=== PATIENT | female | born 1990 | race Caucasian/White ===

== ENCOUNTER 2016-06-20 09:44 | Inpatient (IN) | payer OTHER ==
[2016-06-20] VITALS (22 sets, daily range): BP systolic 75–123; BP diastolic 50–76
[~2016-06-20] VITALS: Ht 170.2 cm; Wt 67.0 kg
[~2016-06-20 09:44] MED LIST: COLA100C PO; IBUP80TA PO; IRON325T PO; PERCOCET PO; PRENTAB40 PO
[2016-06-20] MEDS ORDERED: LACTATED RINGER'S 1000 ML IV STA (10:08)
[2016-06-20] MEDS ORDERED: LR 1,000 ML IV SCH (10:08)
[2016-06-20 10:21] LABS: MEAN CORPUSCULAR HEMOGLOBIN 27.8 pg (27.0-33.0); MEAN CORPUSCULAR HGB CONC 32.7 g/dl (32.0-36.5); RED CELL DISTRIBUTION WIDTH 14.3 % (11.5-14.5); WHITE BLOOD COUNT 9.7 K/mm3 (4.0-10.0)
--- NOTE | 2016-06-20 10:24 | HPEPDOC ---
Obstetrical History & Physical General Date of Admission Jun 20, 2016 at 10:04 History of Present Illness Tracy is a 24yo with SIUP at 40w5d with history of prior section for breech presentation desiring TOLAC presenting with regular ctx since 0100. She states her contractions have become more painful over time. No LOF, no vaginal bleeding. Feels movement. Chief Complaint: Contractions, term Information Provided By: Patient Care Care: Good Care Dating Final EDC: Jun 15, 2016 Final EDC by: 1st trimester (US) Antepartum Course Diagnos(e)s History of prior for breech presentation in 2014, anxiety previously on bupropion but not since becoming Height (inches): 61 Pre- weight (lbs.): 135 Admission Weight (lbs.): 157 Change in Weight (lbs.): 22 Past Medical History Past Obstetrical History : Past Obstetrical History: Multigravida Date of Delivery: Oct 21, 2014 Gestation: 39 Type of Delivery: Ceserean section Sex of : Female Complications: No FAMILY SERVICES SPECIALIST History: No pertinent history Past Medical History Medical History Anxiety Surgical History: Dilation and curettage, section Family History Significant Family History: No pertinent family hx Social History Marital Status: Family situation: Spouse/partner home Psychosocial History: No pertinent psych hx * Smoker: non-smoker Alcohol: denies Drugs: denies Imunizations Tdap status: current Influenza Status: current Allergies Coded Allergies: No Known Allergies (Unverified , 10/05/14) Medications No Active Prescriptions or Reported Meds Physical Examination Physical Examination GENERAL: Alert and oriented times three. BREAST: . ABDOMEN: Gravid and non-tender to touch. FETUS: Is vertex (VTX) by sterile vaginal examination (SVE) HEART RATE: Regular rate and rhythm. LUNGS: Clear to auscultation (CTA). EXTREMITIES: No edema. Pertinent Laboratoy Data Blood Type: A+ RBC Antibody Screen: Negative HIV: Negative Hepatitis B: Negative Hepatitis C: Unknown Rapid Plasma Reagin: Nonreactive Rubella: Immune Varicella: Nonreactive Chlamydia/Gonorrhea: Negative Group B Streptococcus: Negative Glucose Tolerance Test: 125 Anatomy Ultrasound Placenta Location: Anterior Normal Anatomy: Yes Placenta Previa: No Steroid Therapy Steroid Therapy: No Vaginal Examination Dilation: 3 cm Effacement: 80+% Station: -1, 0 Cervical Consistency: Soft Cervical Position: Anterior Presentation: Cephalic presentation Assessment Heart Rate (FHR): 120 Variability: Moderate Accelerations: Positive Decelerations: Late Tocometer Contractions: Yes Frequency: irregular Duration: greater than 60 seconds Strength: palpated as moderate Assessment/Plan Assessment Tracy is a 24yo with SIUP at 40w5d with history of prior section for breech presentation desiring TOLAC presenting in labor with SCE /-1. Cephalic by SCE. Patient had strong ctx in triage with subsequent late/ variable decels- endorses has not stayed well hydrated since yesterday. GBS neg. PMhx only significant for anxiety on no medications currently and prior Plan Admit and orient. Director Customer and consent. Diet: clear liquids Group B Streptococcus (GBS) negative Labs and intravenous (IV) per unit protocol. Lactated Ringers (LR): Bolus 1000 mL, then at 125 mL/hr. Anticipate normal spontaneous delivery () C-S as appropriate. Desires epidural for labor Dr. Kaye Haskins MD McalesterKAYE Perez MD Jun 20, 2016 10:24
[2016-06-20] MEDS ORDERED: FENTANYL 2MCG/ML ROPIVACAINE 0.2% NACL 250 ML CADD As Ordered ONE (10:52)
[2016-06-20] MEDS ORDERED: diphenhydrAMINE INJ 50MG/ML VIAL (J1200) IV PRN (12:15)
[2016-06-20] MEDS ORDERED: EPIDURAL COMMENT XX SCH (12:15)
[2016-06-20] MEDS ORDERED: ePHEDrine SULFATE 25 MG/5 ML(5MG/ML) SYRINGE IV PRN (12:15)
[2016-06-20] MEDS ORDERED: FENTANYL/ROPIVACAINE/NACL CADD 250 ML EPIDURAL SCH (12:15)
[2016-06-20] MEDS ORDERED: NALOXONE INJ 0.4 MG/1 ML VIAL (J2310) IV PRN (12:15)
[2016-06-20] MEDS ORDERED: REFRIGERATOR IV KEYS XX PRN (12:15)
[2016-06-20] MEDS ORDERED: EPIDURAL/PCA KEYS XX PRN (12:15)
[2016-06-20] MEDS ORDERED: ONDANSETRON 4MG/2ML VIAL (J2405) IV PRN (12:15)
[2016-06-20] MEDS ORDERED: LACTATED RINGER'S 1000 ML IV PRN (12:15)
--- NOTE | 2016-06-20 19:26 | IPNPDOC ---
Text Note Date of Service The patient was seen on 06/20/16 at 19:25. NOTE Intrapartum Note Patient comfortable with epidural. FHRT has remained Cat I since the non-reproduced FHR decels on admission. AROM with scant blood tinged fluid at 1830 tolerated well. Patient still luz less often then every 5 min. Will begin pitocin and titrate to effect. Dr. Kaye Haskins MD [facility] ROQUE VS,Troy, I+O VS, Troy, I+O Laboratory Tests 06/20/16 10:10 Red Blood Count 3.90 L, Mean Corpuscular Volume 85.0, Mean Corpuscular Hemoglobin 27.8, Mean Corpuscular Hemoglobin Concent 32.7, Red Cell Distribution Width 14.3 Vital Signs Date Time Temp Pulse Resp B/P Pulse Ox O2 Delivery O2 Flow Rate FiO2 06/20/16 14:45 86 86/51 06/20/16 11:52 96 KAYE HASKINS MD Jun 20, 2016 19:26
[2016-06-20] MEDS ORDERED: OXYTOCIN DRIP 30 UNITS in APPROPRIATE DILUENT 1 EA IV SCH (19:30)
[2016-06-21] MEDS ORDERED: RHOGAM 300 MCG (1500 IU) INJ (J2790) IM SCH (00:15)
[2016-06-21] MEDS ORDERED: MOM 30ML SUSPENSION UDC PO PRN (00:15)
[2016-06-21] MEDS ORDERED: DIBUCAINE 1% OINTMENT 30GM TOP PRN (00:15)
[2016-06-21] MEDS ORDERED: MEASLES,MUMPS,RUBELLA VACCINE INJ (MMR-II) (90707) SC SCH (00:15)
--- NOTE | 2016-06-21 00:31 | DNPDOC ---
Delivery Note Delivery Note DATE OF DELIVERY: Jun 20, 2016 at 2220 PREDELIVERY DIAGNOSIS: 40w5d gestation with active labor desiring TOLAC POST DELIVERY DIAGNOSIS: Delivered, successful . PROCEDURE: RETORT ENGINEER: Dr. Kaye Haskins MD ANESTHESIA: epidural ESTIMATED BLOOD LOSS: 150 mL. FINDINGS: 7 pound 10 ounce male infant, Score 9/9 DELIVERY SUMMARY: Tracy is a 25yo G3 now P2012 who was admitted to L&D for active labor. She had an uncomplicated of a viable male at 20:12 on 20 Jun 2016 at 40w5d. Head delivered OA, restituted PORSHA. No nuchal cord, but cord was wrapped around the right arm twice and there was right compound hand. Left anterior shoulder delivered followed by posterior shoulder and corpus. mouth/nares bulb suctioned. Spontaneous cry noted. Baby placed on mother's abdomen. Cord clamped x2 and cut by FOB after 1 minute delayed cord clamping. Apgars 9/9, weight 5hr72cf or 3446g. No indication to obtain cord blood. With gentle downward guidance and suprapubic pressure, placenta delivered spontaneously and intact. Fundal massage until both uterine fundus and lower uterine segment firm; fundus at U-1. Inspection of perineum and vaginal wall revealed superficial right labial and small 2MLL closed with 3.0/4.0 vicryl suture with good hemostasis. Mom and infant in stable condition. KAYE HASKINS MD Jun 21, 2016 00:31
[2016-06-21 00:45] VITALS: BP 109/65
[2016-06-21] MEDS: IBUPROFEN 800 MG TAB PO PRN ×4 (00:45→23:38)
[2016-06-21] MEDS: ACETAMINOPHEN 500 MG TAB PO PRN ×3 (05:27→19:39)
[2016-06-21 06:18] VITALS: BP 113/74
--- NOTE | 2016-06-21 08:06 | IPNPDOC ---
Text Note Date of Service The patient was seen on 06/21/16 at 08:03. NOTE PPD1 Tracy is a 25yo doing well on PPD 2 s/p uncomplicated successful . She is . Lochia normal, spontaneously voiding and ambulating without difficulty. Tolerating regular diet. Denies f/c/n/v/SOB/CP/DANIELLE/abdominal pain. PMhx: anxiety- no meds, previous delivery for breech Vitals wnl, afebrile Exam: General: WDWN, NAD, resting comfortably Cardiac: S1S2 present, no murmur Lungs: CTAB without wheeze/crackles Abdomen: soft, NTTP, fundus firm u-2cm Extremities: no tenderness of calves bilaterally Assessment: Tracy is a 25yo doing well on PPD 2 s/p uncomplicated successful . No e/o infection, hemodynamically stable. Plan: -routine post- care -tylenol/motrin for pain -encourage and ambulation -undecided on contraception Dr. Kaye Haskins MD [place] MYA VS,Troy, I+O VS, Troy, I+O Laboratory Tests 06/20/16 10:10 Red Blood Count 3.90 L, Mean Corpuscular Volume 85.0, Mean Corpuscular Hemoglobin 27.8, Mean Corpuscular Hemoglobin Concent 32.7, Red Cell Distribution Width 14.3 Vital Signs Date Time Temp Pulse Resp B/P Pulse Ox O2 Delivery O2 Flow Rate FiO2 06/21/16 06:18 97.8 75 18 113/74 06/20/16 11:52 96 I&O- Last 24 Hours up to 6 AM 06/21/16 06:00 Output Total 4650 ml Balance -4650 ml KAYE HASKINS MD Jun 21, 2016 08:06
[2016-06-21] MEDS: PRENATAL VITAMIN TAB PO SCH (08:29)
[2016-06-21] MEDS: oxyCODONE 5MG TAB PO PRN ×3 (09:46→21:11)
[2016-06-21 18:00] VITALS: BP 119/75
[2016-06-22 06:06] VITALS: BP 101/60
--- NOTE | 2016-06-22 07:53 | DS.PDOC ---
Discharge Summary General Date of Admission Jun 20, 2016 at 10:04 Date of Discharge [id number] Discharge Summary COMPLICATIONS/CHIEF COMPLAINT: Active labor at term, Prior ADMISSION DIAGNOSES: 1. Active labor DISCHARGE DIAGNOSES: 1. successful HOSPITAL COURSE: Patient was admitted in labor and had an uncomplicated delivery other than a labial laceration and a second degree perineal laceration , both repaired successfully. She had an uncomplicated course thereafter. DISCHARGE MEDICATIONS: Motrin, Lanolin PHYSICAL EXAMINATION ON DISCHARGE: see prog note from this AM VITAL SIGNS: Please see below. DISCHARGE CONDITION: stable DISPOSITION: to home ACTIVITY: Nothing in the vagina for 6-8 weeks. Regular diet. DISCHARGE PLAN AND INSTRUCTIONS: follow up at 6 week visit Sessions Vital Signs/I&Os Vital Signs Date Time Temp Pulse Resp B/P Pulse Ox O2 Delivery O2 Flow Rate FiO2 06/22/16 06:06 98.6 81 16 101/60 06/21/16 21:11 Room Air 06/20/16 11:52 96 Medications No Active Prescriptions or Reported Meds Allergies Coded Allergies: No Known Allergies (Unverified , 10/05/14) SESSIONS,NASH Alarcon MD Jun 22, 2016 07:53
--- NOTE | 2016-06-22 07:58 | IPNPDOC ---
Text Note Date of Service The patient was seen on 06/22/16 at 07:57. NOTE PPD2 prog note Pt states feeling well, minimal pain. VB slowing. Baby feeding OK. No CP/LP/ SOB. Voiding and ambulatory. VSSAF Fundus at U-2, firm LE no CCE a/p: Doing well. Discharge this AM, to boarding if baby not released. Sessions VS,Troy, I+O VSTroy I+O Vital Signs Date Time Temp Pulse Resp B/P Pulse Ox O2 Delivery O2 Flow Rate FiO2 06/22/16 06:06 98.6 81 16 101/60 06/21/16 21:11 Room Air 06/20/16 11:52 96 SESSIONS,NASH Alarcon MD Jun 22, 2016 07:58
[2016-06-22] MEDS: IBUPROFEN 800 MG TAB PO PRN (07:59)
[2016-06-22] MEDS: PRENATAL VITAMIN TAB PO SCH (07:59)
[2016-06-22] MEDS ORDERED: ACET50TA PO (08:33)
[2016-06-22] MEDS ORDERED: PRENTAB9 PO (08:33)
[2016-06-22] MEDS ORDERED: IBUP-1114 PO (08:33)
== END 2016-06-22 12:30 | disposition home or self-care (01) | DRG 775 ==
LOC: M LDO 09:44 → M LDI 10:04 → M OBS 06-21 00:38
PROVIDERS: ADMIT Obstetrics & Gynecology; ATTEND Obstetrics & Gynecology
PROC: 10E0XZZ Delivery of Products of Conception, External Approach (ICD-10-PCS; principal; 2016-06-20)
PROC: 0KQM0ZZ Repair Perineum Muscle, Open Approach (ICD-10-PCS; 2016-06-20)
PROC: 0HQ9XZZ Repair Perineum Skin, External Approach (ICD-10-PCS; 2016-06-20)
DX: O48.0 Post-term pregnancy (principal); Z37.0 Single live birth; O32.6XX0 Maternal care for compound presentation, not applicable or unspecified; O69.82X0 Labor and delivery complicated by other cord entanglement, without compression, not applicable or unspecified; Z3A.40 40 weeks gestation of pregnancy; O34.211 Maternal care for low transverse scar from previous cesarean delivery; O70.1 Second degree perineal laceration during delivery; O70.0 First degree perineal laceration during delivery